=== PATIENT | female | born 1990 | race American Indian/Alaskan Native ===

== ENCOUNTER 2020-07-09 07:45 | Outpatient (CLI) | payer MEDICAID ==
[2020-07-09 08:32] LABS: ABG Base Excess -0.1 mmol/L (-2.0-3.0); ABG HCO3 24.4 mmol/L (20.0-26.0); ABG Methemoglobin 0.5 % (0.0-1.5); ABG PCO2 39.4 mm Hg; ABG PH 7.41 pH Units (7.350-7.450); ABG PO2 88.8 mm Hg (80.0-90.0)
[2020-07-09 08:39] LABS: Hematocrit 37.9 % (30.3-42.9); Hemoglobin 12.6 gm/dl (10.1-14.3); Mean Corpuscular HGB Conc 33 % (30-34); Mean Corpuscular Volume 90 fl (79-97); Platelet Count 194 K/mm3 (140-440); Red Cell Distribution Width 15.1 % (13.2-15.2)
[2020-07-09 09:04] LABS: Alanine Aminotransferase 8 units/L (7-56); Albumin 4.2 g/dL (3.9-5); Blood Urea Nitrogen 14 mg/dL (7-17); Calcium 8.6 mg/dL (8.4-10.2); Chol/HDL Ratio 1.81 %; HDL Cholesterol 90 mg/dL (40-59); Hemolysis Index 2; LDL Cholesterol,Direct 74 mg/dL (50-130)
[2020-07-09 09:08] LABS: BUN/Creatinine Ratio 23
--- NOTE | 2020-07-09 10:03 | Vascular Lab Report ---
DUPLEX DOPPLER LOWER EXTREMITY VEINS, BILATERAL INDICATION / CLINICAL INFORMATION: BLE SWELLING. TECHNIQUE: Duplex doppler imaging was performed through the veins of both lower extremities using venous eliud beth and other maneuvers. COMPARISON: None available. FINDINGS: RIGHT COMMON FEMORAL VEIN: Negative. RIGHT FEMORAL VEIN: Negative. RIGHT POPLITEAL VEIN: Negative. RIGHT CALF VEINS: Negative. LEFT COMMON FEMORAL VEIN: Negative. LEFT FEMORAL VEIN: Negative. LEFT POPLITEAL VEIN: Negative. LEFT CALF VEINS: Negative. ADDITIONAL FINDINGS: None. IMPRESSION: 1. No sonographic evidence for DVT in either lower extremity. Signer Name: Collin Tripathi MD Signed: 07/09/2020 9:58 AM Workstation Name: [id number]
--- NOTE | 2020-07-09 10:25 | Cat Scan Report ---
CTA CHEST WITH IV CONTRAST INDICATION: ASTHMA, chest pain, sob and lightheaded . TECHNIQUE: Axial CT images were obtained through the chest after injection of IV contrast. 3 plane MIP reconstru ctions were produced. All CT scans at this location are performed using CT dose reduction for ALARA b y means of automated exposure control. COMPARISON: None available. FINDINGS: Pulmonary Arteries: As seen on axial series 2 images 58-63, there is thrombus within a segmental infe rior/medial right lower lobe pulmonary artery. No additional filling defects are seen in the pulmonar y arterial tree. Thoracic Aorta: No acute abnormality. Heart: Normal. Lungs: No acute air space or interstitial disease. Pleura: No pleural effusion. No pneumothorax. Lymph Nodes: No significant adenopathy. Additional Findings: None. Upper Abdomen: No acute findings. Skeletal Structures: No significant osseous abnormality. IMPRESSION: 1. Small segmental PTE right lower lobe. 2. No acute pulmonary or pleural findings. CRITICAL RESULT: Time of Discovery (STUDIO ENGINEER/CDT): 9:14 AM Time of Communication (STUDIO ENGINEER/CDT): 9:17 AM Licensed Practitioner Receiving Report: Dr. Sarmiento's nurseKezia Read-Back Performed: Yes. Signer Name: Collin Tripathi MD Signed: 07/09/2020 10:21 AM Workstation Name: [id number]
--- NOTE | 2020-07-09 10:38 | XRay Report ---
CHEST 2 VIEWS INDICATION / CLINICAL INFORMATION: ASTHMA,GAS TROPHAGEAL REFLUX. COMPARISON: None available. FINDINGS: SUPPORT DEVICES: None. HEART / MEDIASTINUM: No significant abnormality. LUNGS / PLEURA: No significant pulmonary or pleural abnormality. No pneumothorax. ADDITIONAL FINDINGS: No significant additional findings. IMPRESSION: 1. No acute findings. Signer Name: Ceferino Trevizo MD Signed: 07/09/2020 10:33 AM Workstation Name: [id number]
--- NOTE | 2020-07-09 12:23 | Fluoroscopy Report ---
UPPER GI HISTORY: DYSPNEA,GASTRO ESOPHAGEAL REFLUX. TECHNIQUE: Single and double contrast barium technique utilized to evaluate the esophagus, stomach, and duodenal C-loop. FINDINGS: To begin the exam, swallowing was evaluated in the lateral position under direct fluorosco py. Swallowing was normal. No mucosal irregularity, mass, mass effect, or critical stenosis. There were no abnormal tertiary c ontractions as seen with dysmotility. No gastroesophageal reflux. IMPRESSION: Unremarkable exam. Fluoroscopic time: 2.6 minutes Number of fluoroscopic images: 13 Signer Name: Cristofer Ren Jr, MD Signed: 07/09/2020 12:18 PM Workstation Name: [id number]
== END 2020-07-09 07:46 | disposition home or self-care (01) ==
LOC: CT 07:45
PROVIDERS: ATTEND Internal Medicine
DX: J45.909 Unspecified asthma, uncomplicated (principal); R06.00 Dyspnea, unspecified; D21.9 Benign neoplasm of connective and other soft tissue, unspecified; J30.9 Allergic rhinitis, unspecified; D64.9 Anemia, unspecified
CPT/HCPCS: 36415; 36600; 71046; 71275; 74246; 80053; 80061; 82785; 82803; 84436; 84443; 85027; 93005; 93970; Q9967

== ENCOUNTER 2020-07-09 11:17 | Emergency (ER) | payer MEDICAID ==
--- NOTE | 2020-07-09 11:28 | Emergency Department Report ---
Blank Doc - Documentation Documentation: 30-year-old female that was sent by PCP for PE. Patient had a CT scan today and was dxed with PE. Patient also had CBC and CMP this morning. Will order other lab work that are needed. 1- This initial assessment/diagnostic orders/clinical plan/ treatment(s) is/are subject to change based on pt's health status, clinical progression and re- assessment by fellow clinical providers in the ED. Further treatment and workup at subsequent clinical provers discretion. Patient/guardians urged not to elope from ED as their condition may be serious if not clinically assessed and managed. 2-labs 3-UA
[2020-07-09 12:51] LABS: INR 0.97 (0.87-1.13)
[2020-07-09 12:52] LABS: Partial Thromboplastin Time 26.4 Sec. (24.2-36.6)
--- NOTE | 2020-07-09 13:35 | Emergency Department Report ---
ED Shortness of Breath HPI - General Chief Complaint: Dyspnea/Respdistress Stated Complaint: BLOOD CLOT(LUNGS) Time Seen by Provider: 07/09/20 11:25 Source: patient Mode of arrival: Ambulatory Limitations: No Limitations - History of Present Illness Initial Comments: Patient is 30 years old female with history of asthma. Patient sent to the emergency room by her wrapping checker Dr. Langley after patient had a CTA chest this morning and found that she has pulmonary embolism. Patient stated that her symptoms started over 1 month ago when she started having shortness of breath and chest pain on and off. Patient denied any chest pain at this moment. She stated that she had some swelling in her leg at that time. Patient denied any fever or chills. No cough. MD Complaint: shortness of breath - Related Data Allergies Allergy/AdvReac Type Severity Reaction Status Date / Time omeprazole Allergy Shortness Verified 07/09/20 11:23 of Breath ED Review of Systems ROS: Stated complaint: BLOOD CLOT(LUNGS) Other details as noted in HPI Comment: All other systems reviewed and negative Constitutional: denies: chills, fever Respiratory: shortness of breath. denies: cough, SOB with exertion, wheezing Cardiovascular: chest pain. denies: palpitations, dyspnea on exertion Gastrointestinal: denies: abdominal pain, nausea, vomiting Musculoskeletal: denies: back pain Neurological: denies: headache, weakness ED Past Medical Hx - Past Medical History Previous Medical History?: Yes Hx Asthma: Yes ED Physical Exam - General Limitations: No Limitations General appearance: alert, in no apparent distress - Head Head exam: Present: atraumatic, normocephalic, normal inspection - Eye Eye exam: Present: normal appearance, PERRL - ENT ENT exam: Present: normal exam, normal orophraynx, mucous membranes moist - Neck Neck exam: Present: normal inspection, full ROM. Absent: tenderness, meningismus - Respiratory Respiratory exam: Present: normal lung sounds bilaterally - Cardiovascular Cardiovascular Exam: Present: regular rate, normal rhythm, normal heart sounds - GI/Abdominal GI/Abdominal exam: Present: soft, normal bowel sounds. Absent: distended, tenderness, guarding, rebound, rigid, organomegaly, mass, bruit, pulsatile mass, hernia - Extremities Exam Extremities exam: Present: normal inspection, full ROM, normal capillary refill. Absent: pedal edema, calf tenderness - Back Exam Back exam: Present: normal inspection, full ROM. Absent: CVA tenderness (R), CVA tenderness (L) - Neurological Exam Neurological exam: Present: alert, oriented X3, CN II-XII intact, normal gait, reflexes normal. Absent: motor sensory deficit - Psychiatric Psychiatric exam: Present: normal mood - Skin Skin exam: Present: warm, intact, normal color ED Course Vital Signs 07/09/20 07/09/20 07/09/20 11:23 14:00 14:02 Temperature 98.2 F Pulse Rate 73 62 Respiratory 16 17 17 Rate Blood Pressure 113/64 Blood Pressure 105/56 [Right] O2 Sat by Pulse 100 100 Oximetry 07/09/20 14:04 Temperature Pulse Rate 62 Respiratory 17 Rate Blood Pressure Blood Pressure 113/64 [Right] O2 Sat by Pulse 100 Oximetry ED Medical Decision Making - EKG Data -: EKG Interpreted by Me EKG shows normal: sinus rhythm Rate: bradycardia - EKG Data Interpretation: no acute changes - Radiology Data Radiology results: report reviewed - Medical Decision Making Patient is 30 years old female with history of asthma. Patient sent to the emergency room by her wrapping checker Dr. Langley after patient had a CTA chest this morning and found that she has pulmonary embolism. Patient stated that her symptoms started over 1 month ago when she started having shortness of breath and chest pain on and off. Patient denied any chest pain at this moment. She stated that she had some swelling in her leg at that time. Patient denied any fever or chills. No cough. Patient remained stable in the ER with stable vital sign. CTA of the chest that was done this morning reviewed and showed pulmonary embolism. I discussed the patient with Dr. Langley, he advised to admit the patient to the hospitalist and patient need to be started on Heparin and he will follow-up with the patient. I discussed the patient with , He agreed to admit the patient to medical service for further management. Critical care attestation.: If time is entered above; I have spent that time in minutes in the direct care of this critically ill patient, excluding procedure time. ED Disposition Clinical Impression: Pulmonary embolism Disposition: OP ADMIT IP TO THIS HOSP Is pt being admited?: Yes Condition: Stable Referrals: PRIMARY CARE,MD [Primary Care Provider] - 3-5 Days
[2020-07-09] MEDS ORDERED: APIXABAN 5 MG TAB PO SCH (15:00)
[2020-07-09 18:58] VITALS: BP 115/67
== END 2020-07-09 18:58 | disposition home or self-care (01) ==
LOC: ED 11:17
DX: I26.99 Other pulmonary embolism without acute cor pulmonale (principal); J45.909 Unspecified asthma, uncomplicated; Z88.8 Allergy status to other drugs, medicaments and biological substances
CPT/HCPCS: 36415; 84484; 84703; 85220; 85301; 85305; 85610; 85613; 85730; 93005

== ENCOUNTER 2021-09-14 10:03 | Outpatient (CLI) | payer MEDICAID ==
[2021-09-14 10:43] LABS: Hematocrit 36.6 % (30.3-42.9); Mean Corpuscular HGB Conc 33 % (30-34); Mean Corpuscular Volume 89 fl (79-97); Platelet Count 190 K/mm3 (140-440); Red Blood Count 4.13 M/mm3 (3.65-5.03); Red Cell Distribution Width 15.3 % (13.2-15.2)
[2021-09-14 10:58] LABS: ABG Base Excess 0.1 mmol/L (-2.0-3.0); ABG HCO3 24.6 mmol/L (20.0-26.0); ABG Methemoglobin 0.5 % (0.0-1.5); ABG Oxygen Saturation 93.5 % (95.0-99.0); ABG PCO2 39.4 mm Hg; ABG PH 7.413 pH Units (7.350-7.450); ABG PO2 62.7 mm Hg (80.0-90.0)
[2021-09-14 11:20] LABS: Alanine Aminotransferase 7 units/L (7-56); Albumin 4.2 g/dL (3.9-5); Blood Urea Nitrogen 8 mg/dL (7-17); Chol/HDL Ratio 2.66 %; HDL Cholesterol 65 mg/dL (40-59); Hemolysis Index 4; LDL Cholesterol,Direct 101 mg/dL (50-130)
[2021-09-14 11:24] LABS: BUN/Creatinine Ratio 13
== END 2021-09-14 10:04 | disposition home or self-care (01) ==
LOC: LAB 10:03
PROVIDERS: ATTEND Internal Medicine
DX: I26.99 Other pulmonary embolism without acute cor pulmonale (principal); J45.909 Unspecified asthma, uncomplicated; R05.9 Cough, unspecified; G47.9 Sleep disorder, unspecified; J30.9 Allergic rhinitis, unspecified; R06.00 Dyspnea, unspecified; Z86.11 Personal history of tuberculosis
CPT/HCPCS: 36415; 36600; 80053; 80061; 82550; 82728; 82803; 83615; 84436; 84443; 84484; 85027; 85379; 86140

== ENCOUNTER 2021-10-06 09:53 | Outpatient (CLI) | payer MEDICAID ==
[2021-10-06 10:26] LABS: Hematocrit 37.4 % (30.3-42.9); Hemoglobin 12.6 gm/dl (10.1-14.3); Mean Corpuscular HGB Conc 34 % (30-34); Mean Corpuscular Volume 87 fl (79-97); Platelet Count 209 K/mm3 (140-440); Red Blood Count 4.28 M/mm3 (3.65-5.03); Red Cell Distribution Width 15.1 % (13.2-15.2)
[2021-10-06 10:45] LABS: Alanine Aminotransferase 8 units/L (7-56); Albumin 4.2 g/dL (3.9-5); BUN/Creatinine Ratio 14; Blood Urea Nitrogen 10 mg/dL (7-17); Calcium 9.1 mg/dL (8.4-10.2); Hemolysis Index 2
== END 2021-10-06 09:54 | disposition home or self-care (01) ==
LOC: LAB 09:53
PROVIDERS: ATTEND Internal Medicine
DX: I26.99 Other pulmonary embolism without acute cor pulmonale (principal)
CPT/HCPCS: 36415; 80053; 85027

== ENCOUNTER 2021-10-08 09:33 | Outpatient (CLI) | payer MEDICAID ==
--- NOTE | 2021-10-08 11:17 | Cat Scan Report ---
CTA CHEST WITH CONTRAST INDICATION / CLINICAL INFORMATION: ELEVATED DDIMER. TECHNIQUE: Axial CT images were obtained through the chest after injection of 100 cc of Omnipaque 350 IV contrast. 3 plane MIP and/or 3D reconstructions were produced. All CT scans at this location are performed using CT dose reduction for ALARA by means of automated exposure control. COMPARISON: Chest radiograph dated 07/09/2020 FINDINGS: PULMONARY ARTERIES: No pulmonary emboli. THORACIC AORTA: No significant abnormality. HEART: No significant abnormality. CORONARY ARTERY CALCIFICATION: None. MEDIASTINUM / JOSE ANGEL: No significant abnormality. PLEURA: No pleural effusion. No pneumothorax. LUNGS: No acute air space or interstitial disease. ADDITIONAL FINDINGS: None. UPPER ABDOMEN: No acute findings. SKELETAL STRUCTURES: No significant osseous abnormality. IMPRESSION: 1. No CT evidence for pulmonary embolism. 2. No acute findings. Signer Name: Aman Ashley DO Signed: 10/08/2021 11:13 AM Workstation Name: [id number]
== END 2021-10-08 09:34 | disposition home or self-care (01) ==
LOC: CT 09:33
PROVIDERS: ATTEND Internal Medicine
DX: I26.99 Other pulmonary embolism without acute cor pulmonale (principal); R79.89 Other specified abnormal findings of blood chemistry
CPT/HCPCS: 36415; 71275; 85379; Q9967